=== PATIENT | male | born 1950 | race Caucasian/White ===

== ENCOUNTER → 2018-10-16 | Day surgery (SDC) | payer MEDICARE | LOC: MSO 09:18 | DX: Z12.11 Encounter for screening for malignant neoplasm of colon (principal); K62.1 Rectal polyp; K52.9 Noninfective gastroenteritis and colitis, unspecified; K21.9 Gastro-esophageal reflux disease without esophagitis; K22.2 Esophageal obstruction; K44.9 Diaphragmatic hernia without obstruction or gangrene; E11.9 Type 2 diabetes mellitus without complications; N40.0 Benign prostatic hyperplasia without lower urinary tract symptoms | CPT/HCPCS: 00813; C1769; J2704; J7030 ==

== ENCOUNTER → 2021-05-21 | Outpatient (CLI) | payer MEDICARE | LOC: RAD 12:57 | DX: R31.29 Other microscopic hematuria (principal) ==